=== PATIENT | male | born 1950 | race Caucasian/White ===

== ENCOUNTER 2016-10-03 08:45 | Day surgery (SDC) | payer BC ==
[2016-09-28 15:38] VITALS: BMI 29.9
[~2016-10-03 08:45] MED LIST: LACTATED RINGERS 1,000 ML IV SCH
[2016-10-03] MEDS ORDERED: LIDOCAINE 1% 20 ML VIAL (10MG/ML) FOR IV START INTRADERMA ONE (09:51)
[2016-10-03 09:56] VITALS: RESP 16; TEMP 97.9
[2016-10-03] MEDS ORDERED: PROPOFOL 10 MG/ML 20 ML VIAL IV ONE (10:25)
--- NOTE | 2016-10-03 11:14 | P.PCN ---
Date of Procedure: 10/03/16 Procedure(s) Performed: Brief history: Patient is a pleasant 66-year-old white female, scheduled for an elective upper endoscopy as well as colonoscopy as a part of evaluation of GERD/Howard's esophagus and screening for colorectal neoplasia. Procedure performed: Esophagogastroduodenoscopy with biopsy Colonoscopy with snare polypectomy Preoperative diagnosis: GERD/Howard's esophagus Screening for colon cancer Anesthesia: MAC Procedure: After informed consent was obtained from the patient was brought into the endoscopy unit and IV conscious sedation was administered by anesthesia under continuous monitoring. Initially upper endoscopy was done. The Olympus GF 160 video endoscope was inserted inserted into the mouth and esophagus intubated without any difficulty and was gradually advanced into the stomach and duodenum and carefully examined. The bulb and second part of the duodenum appeared normal. The scope was then withdrawn into the stomach adequately insufflated with air and upon careful examination the antrum and body, cardia and fundus appeared normal. The scope was then withdrawn into the esophagus. Small sliding type hiatal hernia noted. The GE junction was located at 38 cm to the incisors. There was Howard's esophagus extending from 36-38 cm from the incisors and multiple biopsies were done from this area. They revealed linear erosions in the distal esophagus consistent with LA grade C reflux esophagitis. Rest of the esophagus appeared normal. Patient tolerated the procedure well. At this time the patient continued to remain sedation. Initial digital rectal examination was normal. Olympus CF 160 video colonoscope was then inserted into the rectum and gradually advanced to the cecum without any difficulty. Careful examination was performed as the scope was gradually being withdrawn. The prep was excellent. The cecum, ascending colon, appeared normal. In the transverse colon there was a 1 cm polyp removed by snare polypectomy and in the descending colon there was another 1 cm polyp removed by snare polypectomy.. In the sigmoid colon there were 2 polyps measuring 1 cm and 4 cm both of which had thickened pedunculated and removed by snare polypectomy and complete polypectomy was accomplished. The rest of the sigmoid colon and rectum appeared normal. Retroflexion was performed in the rectum and no lesions were noted. Patient tolerated the procedure well. Impression: 1. Upper endoscopy revealed Howard's esophagus and LA grade C reflux esophagitis.. Small hiatal hernia 2. Colonoscopy revealed; a) 1 cm transverse colon polyp status post polypectomy b) 1 cm descending colon polyp serous post-polypectomy c): 1 cm and 4 cm thick pedunculated sigmoid colon polyps status post polypectomy Recommendations: Findings of this examination were discussed with the patient as well as. He was advised to follow with the biopsy results. If the biopsy shows a tubular adenoma he can have a repeat colonoscopy in 1-2 years
[2016-10-03 11:49] VITALS: BP 173/78; PULSE 49
== END 2016-10-03 12:14 | disposition home or self-care (01) ==
LOC: ORWHC2ENDO 08:45
PROVIDERS: ATTEND Internal Medicine Gastroenterology
DX: Z12.11 Encounter for screening for malignant neoplasm of colon (principal); D12.3 Benign neoplasm of transverse colon; D12.4 Benign neoplasm of descending colon; D12.5 Benign neoplasm of sigmoid colon; K22.70 Barrett's esophagus without dysplasia; K44.9 Diaphragmatic hernia without obstruction or gangrene; Z79.82 Long term (current) use of aspirin
CPT/HCPCS: 45385; 43239; 88305; J2704; 99153

== ENCOUNTER 2017-04-03 09:53 | Day surgery (SDC) | payer BC, MEDICARE ==
[2017-03-29 12:59] VITALS: BMI 29.4
[2017-04-03 11:25] VITALS: RESP 16; TEMP 97.9
[2017-04-03] MEDS ORDERED: LIDOCAINE 1% 20 ML VIAL (10MG/ML) FOR IV START INTRADERMA ONE (11:37)
[2017-04-03] MEDS ORDERED: PROPOFOL 10 MG/ML 20 ML VIAL IV ONE (11:50)
--- NOTE | 2017-04-03 12:13 | P.PCN ---
Date of Procedure: 04/03/17 Preoperative Diagnosis: Postoperative Diagnosis: Procedure(s) Performed: BRIEF HISTORY: Patient is a 67-year-old pleasant white male, scheduled for an elective colonoscopy as a part of follow-up of large colon polyp that was noted on a recent colonoscopy in September 2012. He was noted to have a 4 cm pedunculated sigmoid polyp biopsy of which showed advanced adenoma with some dysplasia. He is hence scheduled for a repeat surveillance colonoscopy today. PROCEDURE PERFORMED: Colonoscopy with snare polyp. PREOPERATIVE DIAGNOSIS: History of advanced adenoma noted in the sigmoid colon. IV sedation per Anesthesia. PROCEDURE: After informed consent was obtained, the patient, was brought into the endoscopy unit. IV sedation was administered by Anesthesia under continuous monitoring. Digital rectal examination was normal. Initially the Olympus CF- 160 flexible video colonoscope was then inserted in the rectum, gradually advanced into the cecum without any difficulty. Careful examination was performed as the scope was gradually being withdrawn. Ileocecal valve and the appendiceal orifice were visualized and appeared normal. Prep was excellent. Mucosa of the cecum, ascending colon, transverse colon, descending colon, sigmoid colon, and rectum appeared normal. In the distal sigmoid colon there were 2 polyps measuring 1 minute in size both of which were removed by snare polypectomy. Scattered sigmoid diverticulosis seen. Retroflexion was performed in the rectum and no lesions were seen. The patient tolerated the procedure well. IMPRESSION: 5 mm 2 and sigmoid colon polyps status post polypectomy Scattered sigmoid diverticulosis RECOMMENDATIONS: Findings of this examination were discussed with the patient as well as a family. He was advised to follow with the biopsy results and he can have a repeat surveillance colonoscopy in 3 years. Implants: Indications for Procedure: Operative Findings: Description of Procedure:
[2017-04-03 12:55] VITALS: BP 137/79; PULSE 45
== END 2017-04-03 13:03 | disposition home or self-care (01) ==
LOC: ORWHC2ENDO 09:53
PROVIDERS: ATTEND Internal Medicine Gastroenterology
DX: Z12.11 Encounter for screening for malignant neoplasm of colon (principal); K63.5 Polyp of colon; K57.30 Diverticulosis of large intestine without perforation or abscess without bleeding; Z86.010 Personal history of colon polyps; K21.9 Gastro-esophageal reflux disease without esophagitis; Z86.718 Personal history of other venous thrombosis and embolism; G47.33 Obstructive sleep apnea (adult) (pediatric); Z99.89 Dependence on other enabling machines and devices; F17.200 Nicotine dependence, unspecified, uncomplicated; Z79.82 Long term (current) use of aspirin; Z79.899 Other long term (current) drug therapy
CPT/HCPCS: 45385; 88305

== ENCOUNTER 2021-06-09 07:36 | Day surgery (SDC) | payer MEDICARE ==
[2021-06-06 15:50] VITALS: BMI 35.2
[2021-06-09 08:17] VITALS: TEMP 98.1
[2021-06-09] MEDS ORDERED: LIDOCAINE 1% (10MG/ML) FOR IV START INTRADERMA ONE (08:24)
[2021-06-09] MEDS ORDERED: PROPOFOL 10 MG/ML 20 ML VIAL IV ONE (08:52)
--- NOTE | 2021-06-09 09:23 | P.PCN ---
Date of Procedure: 06/09/21 Procedure(s) Performed: Brief history: Patient is a pleasant 69-year-old white male scheduled for an elective upper endoscopy as well as colonoscopy as a part of evaluation of GERD and prior history of colon polyps. Procedure performed: Esophagogastroduodenoscopy with biopsy Colonoscopy snare polypectomy and hot biopsy Preoperative diagnosis: GERD History of colon polyps Anesthesia: MAC Procedure: After informed consent was obtained from the patient was brought into the endoscopy unit and IV sedation was administered by anesthesia under continuous monitoring. Initially upper endoscopy was done. The Olympus GF 160 video endoscope was inserted inserted into the mouth and esophagus intubated without any difficulty and was gradually advanced into the stomach and duodenum and carefully examined. The bulb and second part of the duodenum appeared normal. The scope was then withdrawn into the stomach adequately insufflated with air and upon careful examination the antrum and body, cardia and fundus appeared normal. The scope was then withdrawn into the esophagus. The size hiatal hernia noted. The GE junction was located at 39 cm to the incisors. There was a centimeter length of Howard's appearing mucosa ascending possible the GE junction which was biopsied. Rest of the esophagus appeared normal. Patient tolerated the procedure well. At this time the patient continued to remain sedation. Initial digital rectal examination was normal. Olympus CF 160 video colonoscope was then inserted into the rectum and gradually advanced to the cecum without any difficulty. Careful examination was performed as the scope was gradually being withdrawn. The prep was excellent. The cecum, up in normal. In the ascending colon there was a 5 mm sessile polyp removed by snare polypectomy. In the proximal transverse colon there was a 5 limited of flat polyp that was partially removed by snare polypectomy and this was removed by hot biopsy. Rest of the ascending colon, transverse colon, descending colon, sigmoid colon and rectum appeared normal. In the sigmoid: There was a 5 mm sessile polyp removed by snare polypectomy. Moderate sigmoid diverticulosis seen. Retroflexion was performed in the rectum and no lesions were noted. Patient tolerated the procedure well. Impression: 1. Upper endoscopy revealed 2 cm length of Howard's esophagus and moderate size hiatal hernia 2. Colonoscopy revealed 5 mm ascending colon polyp status post polypectomy 5 mm flat transverse colon polyp status post partial snare polypectomy followed by hot biopsy 5 mm sigmoid: Polyp status post snare polypectomy Moderate sigmoid diverticulosis Recommendations: Findings of this examination were discussed with the patient as well as his family. He was advised to follow with the biopsy results. If the biopsy reveals the esophagus he can have a repeat upper endoscopy and colonoscopy in 3 years.. In the meantime he will continue on Nexium 20 mg daily and follow antireflux measures.
[2021-06-09 09:28] VITALS: RESP 16
[2021-06-09 09:48] VITALS: BP 130/63; PULSE 94
== END 2021-06-09 10:12 | disposition home or self-care (01) ==
LOC: ORWHC2ENDO 07:36
PROVIDERS: ATTEND Internal Medicine Gastroenterology
DX: Z12.11 Encounter for screening for malignant neoplasm of colon (principal); K44.9 Diaphragmatic hernia without obstruction or gangrene; K57.30 Diverticulosis of large intestine without perforation or abscess without bleeding; K22.70 Barrett's esophagus without dysplasia; I10 Essential (primary) hypertension; G47.33 Obstructive sleep apnea (adult) (pediatric); K21.9 Gastro-esophageal reflux disease without esophagitis; Z86.010 Personal history of colon polyps; Z98.890 Other specified postprocedural states; Z97.2 Presence of dental prosthetic device (complete) (partial); Z79.899 Other long term (current) drug therapy; K29.50 Unspecified chronic gastritis without bleeding; D12.2 Benign neoplasm of ascending colon; D12.3 Benign neoplasm of transverse colon; D12.5 Benign neoplasm of sigmoid colon
CPT/HCPCS: 88305; 45384; 45385; 43239; J2704

== ENCOUNTER → 2021-06-13 | Outpatient (CLI) | payer MEDICARE ==
[2021-06-13 19:49] LABS: African American GFR (CKD) 68.3 (60.0-200.0); Anion Gap 10.5 mmol/L (4.00-12.00); Blood Urea Nitrogen 19.8 mg/dL (9.0-27.0); Carbon Dioxide 26.6 mmol/L (21.6-31.8); Potassium 4.9 mmol/L (3.5-5.5)
== END | disposition home or self-care (01) ==
LOC: LABWHC1 10:49
PROVIDERS: ATTEND Internal Medicine Cardiovascular Disease
DX: R60.9 Edema, unspecified (principal)
CPT/HCPCS: 36415; 80051; 82565; 84520

== ENCOUNTER → 2021-07-03 | Outpatient (CLI) | payer MEDICARE | END | disposition home or self-care (01) | LOC: LABWHC1 15:07 | PROVIDERS: ATTEND Family Medicine | DX: R97.20 Elevated prostate specific antigen [PSA] (principal) | CPT/HCPCS: 36415; 84153 ==

== ENCOUNTER → 2022-07-12 | Outpatient (CLI) | payer MEDICARE | END | disposition home or self-care (01) | LOC: LABWHC1 10:49 | PROVIDERS: ATTEND Urology | DX: C61 Malignant neoplasm of prostate (principal) | CPT/HCPCS: 36415; 84153 ==

== ENCOUNTER → 2022-08-27 | Outpatient (CLI) | payer MEDICARE ==
--- NOTE | 2022-08-28 21:58 | MR ---
EXAMINATION TYPE: MR Prostate wo/w con DATE OF EXAM: 08/27/2022 7:04 AM COMPARISON: None. CLINICAL INDICATION:Male, 72 years old with history of C61 prostate ca; TECHNIQUE: Multi-planar, multi-sequence imaging of the pelvis is performed prior to and following the uncomplicated administration of bolus intravenous gadolinium. CONTRAST: 10 Gadavist Interpretive Criteria: PI-RADS v2.1 SERUM PSA: 12.0 and 07/12/2022 SURGICAL PATHOLOGY: Adenocarcinoma involving multiple biopsies in 5 of 8 cores with 3+3 Nimo 6. FINDINGS: Prostatic dimensions: 4.9 x 5.4 x 4.0 cm. Ellipsoid Volume: 55.42 mL (PSA density=0.22 ng/mL/mL) CENTRAL GLAND (Central and Transition Zones/CZ+TZ): Multiple bilateral, heterogenous appearing hypertrophic stromal nodules, without suspicious lesion. ( PI-RADS 2) PERIPHERAL ZONE (PZ): Bilateral linear, indistinct wedgelike areas of low ADC, and low T2 signal, No evidence of masslike a bnormality, or localized perfusional hypervascularity, to further suggest a focus of clinically signi ficant prostate cancer. (PI-RADS 2) SEMINAL VESICLES (SV): Symmetric and unremarkable. PERIPROSTATIC TISSUES: Unremarkable. LYMPH NODES: No enlarged pelvic lymph node. Prominent nonenlarged right external iliac lymph node measuring up to 9 mm in short axis and on the l eft measuring up to 8 mm in short axis. REMAINING PELVIS: 1. The left bladder wall consistent exophytic probable pedunculated mass measuring 2.7 x 1.6 x 1.8 c m 2. No abnormal free or organized intrapelvic fluid collection. 3. No pathologic bowel dilation or mural thickening. 4. Bilateral fat-containing inguinal hernias. OSSEOUS STRUCTURES: No suspicious osseous abnormality. Left hip arthroplasty which limits evaluation of the left hip. IMPRESSION: 1. No specific findings to correlate with biopsy proven adenocarcinoma. Most circumscribed BPH nodule s are noted with suspected extruded nodules in the right peripheral gland. 2. Moderate BPH, estimated gland volume 55mL. 3. Left bladder wall mass concerning for transitional cell carcinoma. Cystoscopy is recommended. 4. No suspicious osseous lesion. No lymphadenopathy however there is a prominent bilateral external i liac lymph node. No evidence of prostate adenocarcinoma involving the periprostatic tissues.
== END | disposition home or self-care (01) ==
LOC: RADMRIMAIN 06:06
PROVIDERS: ATTEND Radiology Radiation Oncology
DX: C61 Malignant neoplasm of prostate (principal); N40.0 Benign prostatic hyperplasia without lower urinary tract symptoms; N32.89 Other specified disorders of bladder
CPT/HCPCS: 72197; A9585

== ENCOUNTER → 2024-02-18 | Outpatient (CLI) | payer MEDICARE ==
[2024-02-18 10:41] LABS: African American GFR (CKD) >90 (>60 ml/min/1.73 sqM); Blood Urea Nitrogen 17 mg/dL (9-20); Non-African American GFR(CKD) 88 (>60 ml/min/1.73 sqM)
--- NOTE | 2024-02-18 13:44 | CT ---
EXAMINATION TYPE: CT abdomen pelvis w con CT DLP: 1875 mGycm, Automated exposure control for dose reduction was used. DATE OF EXAM: 02/18/2024 11:46 AM COMPARISON: MR prostate 08/27/2022 CLINICAL INDICATION:Male, 73 years old with history of C37.9 bladder ca; bladder and prostate ca TECHNIQUE: Standard CT of the abdomen and pelvis following the administration of 100 cc of Isovue 3 00 IV contrast material and oral contrast. Coronal and sagittal reformats were performed. FINDINGS: LOWER CHEST: No focal consolidation or pleural effusion identified. Centrilobular emphysematous epstein es. No suspicious pulmonary nodule. ABDOMEN LIVER: Unremarkable GALLBLADDER AND BILE DUCTS: Unremarkable. PANCREAS: Unremarkable. SPLEEN: Unremarkable. ADRENAL GLANDS: Unremarkable. KIDNEYS AND URETERS: No evidence of hydronephrosis or renal calculus. The kidneys enhance symmetrical ly. Subcentimeter left mid kidney hypodense focus which is too small to characterize but likely repre sents a cyst. Right mid kidney 4.7 cm cyst. Contrast is demonstrated within both collecting systems o n the delayed phase. PELVIS BLADDER: Unremarkable REPRODUCTIVE: Unremarkable. ABDOMEN & PELVIS STOMACH AND BOWEL: Small hiatal hernia, duodenum is unremarkable. Scattered colonic diverticulosis wi thout evidence for acute diverticulitis. The appendix is within normal limits. Enteric contrast reach es the distal small bowel. No focal bowel wall thickening or surrounding inflammatory changes. No bonifacio dence of bowel obstruction. PERITONEUM: No evidence of pneumoperitoneum or free fluid. VASCULATURE: Moderate atherosclerotic calcifications are present throughout the abdominal aorta and i ts branches. No evidence of aortic aneurysm. Pelvic phleboliths. MUSCULOSKELETAL: No acute osseous abnormalities. Postsurgical changes from a total hip arthroplasty. Mild to moderate osteoarthritic changes of the right hip. 8 mm sclerotic focus with posterior T10 janine tebral body. LYMPH NODES: No lymphadenopathy greater than 1 cm in short axis. SOFT TISSUE/ABDOMINAL WALL: Fat filled left inguinal hernia. Small fat filled umbilical hernia. IMPRESSION: 1. Nonspecific 8 mm sclerotic focus within the T10 vertebral body which may represent a benign bone island versus osseous metastasis. No other suspicious osseous lesions identified. This can be further evaluated with nuclear medicine bone scan. 2. No lymphadenopathy or other evidence for metastasis. 3. Colonic diverticulosis without evidence for acute diverticulitis. 4. Small hiatal hernia.
== END | disposition home or self-care (01) ==
LOC: RADCTMAIN 09:39
PROVIDERS: ATTEND Urology
DX: C67.9 Malignant neoplasm of bladder, unspecified (principal); K57.30 Diverticulosis of large intestine without perforation or abscess without bleeding; K44.9 Diaphragmatic hernia without obstruction or gangrene
CPT/HCPCS: 82565; 84520; 74177; 36415; Q9967

== ENCOUNTER → 2024-03-11 | Outpatient (CLI) | payer MEDICARE ==
--- NOTE | 2024-03-11 12:37 | NM ---
EXAMINATION TYPE: NM bone scan whole body DATE OF EXAM: 03/11/2024 COMPARISON: NONE CLINICAL INDICATION: Male, 74 years old with history of C61 PROSTATE CA C67.9 BLADDER CANCER; Delayed whole-body scanning was performed following the injection of 25.3 mCi Tc 99m MDP. Images acq uired 3 hours post injection. FINDINGS: No evidence for intense uptake to suggest metastatic disease. Degenerative uptake about the shoulders , sternoclavicular joints, mid thoracic spine, hips knees and ankles. Left hip prosthesis. IMPRESSION: Degenerative uptake noted.
== END | disposition home or self-care (01) ==
LOC: RADNMMAIN 07:19
PROVIDERS: ATTEND Urology
DX: C61 Malignant neoplasm of prostate (principal); C67.9 Malignant neoplasm of bladder, unspecified
CPT/HCPCS: 78306; A9503

== ENCOUNTER → 2024-12-18 | Outpatient (CLI) | payer MEDICARE ==
--- NOTE | 2024-12-18 11:40 | CTL ---
EXAMINATION TYPE: CT Low Dose Lung DATE OF EXAM ORDERED: 12/18/2024 COMPARISON: None. CLINICAL INDICATION: Male, 74 years old with history of F17.210 nicotine dependence; PHH, current smo ker, 1 pack a day for 50 years, Lung cancer screening, History of Smoking/tobacco use. TECHNIQUE: Low dose computed tomography scan was performed through the chest at 1 mm thick sections a nd reconstructed images in multiple planes at 1 mm and [address] DLP: [address] CTDI: 2.6 mGy Automated exposure control for dose reduction was used. CT DIAGNOSTIC QUALITY: Satisfactory FINDINGS: Nodules: A few scattered tiny bilateral nodules. For reference is a 6 x 3 mm left lower lobe pulmonar y nodule abutting the fissure axial image 166. No greater than 6 mm pulmonary nodules. LUNGS: COPD: Severity: Moderate Fibrosis: Severity: None Lymph nodes: None. Other findings: None. RIGHT PLEURAL SPACE: Effusion: None Calcification: None Thickening: None Pneumothorax: None LEFT PLEURAL SPACE: Effusion: None Calcification: None Thickening: None Pneumothorax: None HEART: Heart Size: Normal Coronary Calcification: Mild Pericardial Effusion: None OTHER FINDINGS: Upper abdomen: Small size hiatal hernia. There is a partially exophytic 3.8 cm low dense lesion in th e right kidney correlates with simple cyst CT abdomen study February 18, 2024 Bony thorax: None Supraclavicular region: None Other: None IMPRESSION: Scattered small nodules. No significant greater than [address] LUNG RAD AND CT CHEST RECOMMENDATION: Lung-Rad 2 Benign Appearance or Behavior: Continue annual sc reening with LDCT in 12 months. S Modifier (other clinically significant findings): None [facility], , 12/18/2024 11:38 AM
== END | disposition home or self-care (01) ==
LOC: RADCTMAIN 08:48
PROVIDERS: ATTEND Family Medicine
DX: Z12.2 Encounter for screening for malignant neoplasm of respiratory organs (principal); F17.210 Nicotine dependence, cigarettes, uncomplicated; R91.8 Other nonspecific abnormal finding of lung field
CPT/HCPCS: 71271

== ENCOUNTER → 2025-02-24 | Outpatient (CLI) | payer MEDICARE ==
[2025-02-24 13:17] LABS: African American GFR (CKD) >90 (>60 ml/min/1.73 sqM); Blood Urea Nitrogen 15 mg/dL (9-20); Non-African American GFR(CKD) 88 (>60 ml/min/1.73 sqM)
--- NOTE | 2025-02-24 13:45 | CT ---
EXAMINATION TYPE: CT abdomen w con DATE OF EXAM: 02/24/2025 COMPARISON: 02/18/2024 CLINICAL INDICATION: Male, 75 years old with history of C61 PROSTATE CANCER C67.9 BLADDER CANCER; PHH , Hx of prostate and bladder CA. TECHNIQUE: Performed with Oral Contrast and with IV Contrast, patient injected with 100 ml mL of Isovue 300. CT DLP: 1439.[address] CTDI: mGy Automated exposure control for dose reduction was used. FINDINGS: The lung bases are clear. There is a small hiatal hernia. The gallbladder is normal without distention, wall thickening, pericholecystic fluid or gallstones. T here is no biliary ductal dilatation. There is no focal mass or organomegaly involving the liver, pancreas, spleen or adrenal glands. There is no solid renal mass or hydronephrosis and there is homogeneous contrast enhancement of the r enal parenchyma. There is a large right renal cyst. The caliber the abdominal aorta is normal is no r etroperitoneal adenopathy or hemorrhage. The bowel loops are normal in caliber and there is no evidence of dilatation or obstruction. No infla mmatory changes are identified in the bowel wall or mesentery. There is no free intraperitoneal air or fluid. There are no destructive osseous lesions. Small sclerotic density in T10 is stable and possibly repre sents a bone island. IMPRESSION: No evidence of recurrent or metastatic disease.. [facility], , 02/24/2025 1:42 PM
[2025-02-24 20:38] LABS: Prostate Specific Antigen 0.14 ng/mL (0.000-6.500)
== END | disposition home or self-care (01) ==
LOC: RADCTMAIN 12:18
PROVIDERS: ATTEND Urology
DX: C61 Malignant neoplasm of prostate (principal); C67.9 Malignant neoplasm of bladder, unspecified
CPT/HCPCS: 84153; 82565; 84520; 74160; 36415; Q9967